=== PATIENT | male | born 1970 | race African-American/Black ===

== ENCOUNTER 2020-03-05 16:29 | Emergency (ER) | payer BC, OTHER ==
[~2020-03-05] VITALS: Ht 193 cm; Wt 109.1 kg
[2020-03-05 16:29] VITALS: BP 135/79
== END 2020-03-05 17:41 | disposition home or self-care (01) ==
LOC: M ED 16:29
DX: M25.561 Pain in right knee (principal); F17.200 Nicotine dependence, unspecified, uncomplicated

== ENCOUNTER 2020-07-08 08:10 | Emergency (ER) | payer BC ==
[~2020-07-08] VITALS: Ht 193 cm; Wt 103.1 kg
[2020-07-08 09:30] LABS: HEMATOCRIT 45.4 % (42.0-52.0); HEMOGLOBIN 15.1 g/dl (13.5-17.5); MEAN CORPUSCULAR HEMOGLOBIN 30.4 pg (27.0-33.0); MEAN CORPUSCULAR HGB CONC 33.3 g/dl (32.0-36.5); MEAN CORPUSCULAR VOLUME 91.5 fl (80.0-96.0); PLATELET COUNT, AUTOMATED 337 10^3/uL (150-450); RED BLOOD COUNT 4.96 10^6/uL (4.30-6.10); WHITE BLOOD COUNT 9.2 10^3/uL (4.0-10.0)
--- NOTE | 2020-07-08 09:33 | REP ---
INDICATION: LUE paraesthesias. COMPARISON: None. TECHNIQUE: Axial CT images with multiplanar reformations. FINDINGS: No acute bleed or acute large vessel territorial infarct. Ventricles, cisterns and sulci are within normal limits. No mass effect or midline shift. No abnormal fluid collections. Paranasal sinuses and mastoid air cells are clear IMPRESSION: No acute findings. <Electronically signed by Bill Sierra > 07/08/20 [id number]
--- NOTE | 2020-07-08 09:44 | REP ---
INDICATION: LUE paraesthesias. COMPARISON: None. TECHNIQUE: Axial CT images with multiplanar reformations. FINDINGS: No acute fracture or malalignment. There is degenerative change with anterior osteophytic spurring, degenerative vertebral flattening, and diminished disc heights. On review of axial images, the canal appears narrowed, greater at the C3-4, C4-5 and C5-6 levels. At C2-3 no significant canal or foraminal narrowing At C3-4 a disc-osteophyte complex is eccentric to the right. The canal measures approximately 8.5 mm centrally with considerable narrowing on the right at this level. At C4-5 disc osteophyte complex with moderate canal stenosis and moderate bilateral foraminal narrowing. At C5-6 disc osteophyte complex with moderate canal narrowing and moderate bilateral foraminal narrowing. At C6-7 and C7-T1 no significant canal or foraminal narrowing. Disc-osteophyte complexes narrow the neural foramen at multiple levels, C3-4 through C6-7, bilaterally. IMPRESSION: No acute findings. Degenerative changes as described. Degenerative changes contributing to radiculopathy and/or paresthesias could be more completely characterized with MRI of the cervical spine. <Electronically signed by Bill Sierra > 07/08/20 [id number]
[2020-07-08 09:49] LABS: ATYPICAL LYMPH 1 % (0-5); LYMPHOCYTES 29 % (16-44); MONOCYTES 3 % (0-5); NEUTROPHILS 67 % (28-66)
[2020-07-08 09:50] LABS: PLATELET ESTIMATE NORMAL (NORMAL)
[2020-07-08 09:59] LABS: BLOOD UREA NITROGEN 14 MG/DL (7-18); CALCIUM LEVEL 8.6 MG/DL (8.5-10.1); CARBON DIOXIDE LEVEL 29 MEQ/L (21-32); CHLORIDE LEVEL 108 MEQ/L (98-107); CK-MB VALUE MASS 1.3 NG/ML (<3.6); CPK CREATINE PHOSPHOKINASE 211 U/L (39-308); CREATININE FOR GFR 1.04 MG/DL (0.70-1.30); GLOMERULAR FILTRATION RATE > 60.0 (>56); GLUCOSE, FASTING 96 MG/DL (70-100); MAGNESIUM LEVEL 2.4 MG/DL (1.8-2.4); MB/CK RELATIVE INDEX 0.62 (< OR =4); POTASSIUM SERUM 3.7 MEQ/L (3.5-5.1); SODIUM LEVEL 142 MEQ/L (136-145); TROPONIN I < 0.02 NG/ML (< 0.10)
--- NOTE | 2020-07-08 10:08 | REP ---
INDICATION: r/o dvt LUE COMPARISON: None. None TECHNIQUE: Zaidi scale and color Doppler evaluation left upper extremity using linear high frequency transducer. FINDINGS: Ultrasound examination of the left upper extremity deep venous structures demonstrates normal flow and wave patterns without evidence for deep venous thrombosis. Incidental tubular hypoechoic structures adjacent to the basilic and brachial veins is identified and may represent the adjacent median nerve. Structure appears relatively benign and without acute pathology by ultrasound evaluation. IMPRESSION: No evidence for deep venous thrombosis. <Electronically signed by Sebastian Wei > 07/08/20 [id number]
[2020-07-08 11:49] VITALS: BP 133/80
[2020-07-08] MEDS ORDERED: PRED20TA PO (11:54)
[2020-07-08] MEDS ORDERED: IBUP80TA PO (11:54)
[2020-07-08] MEDS ORDERED: LIDO5DIS41 TOP (11:54)
--- NOTE | 2020-07-08 18:16 | ECGEPIP ---
[facility] - ED Test Date: 2020-07-08 Pat Name: SHREYA MARTINEZ Department: Room: - Gender: Male Manager Customer: VIVIANA : 1970 Requested By: RASHMI Worrell PA-C Order Number: [id number] Reading MD: Jaci Youngblood Measurements Intervals [place] Rate: 78 P: 56 NM: 124 QRS: 39 QRSD: 88 T: 46 QT: 372 QTc: 424 Interpretive Statements Normal sinus rhythm No prior Electronically Signed on 07-08-2020 18:15:47 EDT by Jaci Youngblood
--- NOTE | 2020-07-10 10:03 | ED PDOC ---
Post-Departure Follow-Up radiology report faxed to [facility] and Jaci Rizo MD Jul 10, 2020 10:03
== END 2020-07-08 12:12 | disposition home or self-care (01) ==
LOC: M ED 09:46
DX: G56.02 Carpal tunnel syndrome, left upper limb (principal); M50.30 Other cervical disc degeneration, unspecified cervical region; M50.20 Other cervical disc displacement, unspecified cervical region; R20.2 Paresthesia of skin; F17.210 Nicotine dependence, cigarettes, uncomplicated

== ENCOUNTER → 2020-07-27 | Outpatient (CLI) | payer BC ==
[~2020-07-27] MED LIST: IBUP80TA PO; LIDO5DIS41 TOP; PRED20TA PO
[2020-07-27 10:40] LABS: C REACTIVE PROTEIN QUANTITATIV 0.82 MG/DL (0.00-0.30); RHEUMATOID FACTOR QUANT < 10.0 IU/ML (<15.0)
== END ==
LOC: M LAB 09:05
PROVIDERS: ATTEND Physician Assistant
DX: M50.30 Other cervical disc degeneration, unspecified cervical region (principal)

== ENCOUNTER → 2020-08-31 | Outpatient (CLI) | payer BC ==
--- NOTE | 2020-08-31 09:54 | REPVR ---
PROCEDURE INFORMATION: Exam: MR Cervical Spine Without Contrast Exam date and time: 08/31/2020 7:57 AM Age: 50 years old Clinical indication: Radicular pain (radiculopathy); Cervical region; Additional info: Cervical disc disorder w rad R/O hnp vs stenosis TECHNIQUE: Imaging protocol: Multiplanar magnetic resonance images of the cervical spine without contrast. COMPARISON: CT Spine,cervical w/o contrast 07/08/2020 9:22 AM FINDINGS: Vertebrae: Straightening of normal cervical lordosis likely secondary to muscular spasm or positioning. Spinal cord: Normal signal. No cord compression. C2-C3: No significant disc disease. No significant spinal stenosis. C3-C4: Posterior disc osteophyte formation with bilateral uncovertebral hypertrophy and facet joint arthropathy, right greater than left resulting in moderate central spinal canal stenosis, and moderate to severe right neural foraminal narrowing. Left neural foramina is patent. C4-C5: Posterior disc osteophyte formation with bilateral uncovertebral hypertrophy and facet joint arthropathy resulting in moderate central spinal canal stenosis and moderate bilateral neural foraminal narrowing. C5-C6: Posterior disc osteophyte formation with left paracentral disc protrusion, bilateral uncovertebral hypertrophy and facet joint arthropathy resulting in moderate central spinal canal stenosis with effacement of the anterior thecal sac, moderate left lateral recess narrowing, and moderate bilateral neural foraminal narrowing. C6-C7: Posterior disc osteophyte formation, left cyst paracentral disc protrusion with annular fissure, bilateral uncovertebral hypertrophy and facet joint arthropathy resulting in moderate central spinal canal stenosis, and severe left neural foraminal narrowing. Right neural foramina is patent. C7-T1: No significant disc disease. No significant spinal stenosis. Soft tissues: Unremarkable. Vertebral arteries: Expected flow voids in the vertebral arteries. IMPRESSION: No acute fracture or traumatic subluxation. Multilevel degenerative disc disease as described in detail above. Please see above dictation for individual levels. Electronically signed by: Jacquelyn Sauceda On 08/31/2020 09:54:16 AM
== END ==
LOC: M RAD 07:12
PROVIDERS: ATTEND Physician Assistant
DX: M50.10 Cervical disc disorder with radiculopathy, unspecified cervical region (principal)

== ENCOUNTER 2023-04-17 09:53 | Day surgery (SDC) | payer BC, OTHER ==
[~2023-04-17] VITALS: Ht 193 cm; Wt 97.5 kg
[~2023-04-17 09:53] MED LIST changes: +CEFUROXIME 1MG/0.1ML INTRACAMERAL INJ As Ordered ONE; +CYCLOPENTOLATE 1% OPHTH SOLN 2ML BTL OD SCH; +LIDOCAINE 1% SDV 5ML VIAL As Ordered ONE; +OFLOXACIN 0.3 % (OCUFLOX) OPTH SOL 5ML OD SCH; +PHENYLEPHRINE 2.5% OPHTH SOL 2ML OD SCH; +PROPARACAINE 0.5% OPHTH SOL 15ML OD ONE; +TROPICAMIDE 1% OPHTH SOLN 15ML OD SCH
[2023-04-17] MEDS ORDERED: BSS IRR 500ML/OMIDRIA 4ML IRR BAG (OR ONLY) As Ordered ONE (10:46)
[2023-04-17] MEDS ORDERED: fentaNYL 100 MCG/2 ML INJECTION As Ordered ONE (11:35)
[2023-04-17] MEDS ORDERED: MIDAZOLAM INJ 2MG/2ML VIAL As Ordered ONE (11:35)
[2023-04-17 11:51] VITALS: BP 134/82; TEMP 98.2; O2SAT 97
== END 2023-04-17 12:09 | disposition home or self-care (01) ==
LOC: M SDC 09:53
PROVIDERS: ATTEND Ophthalmology
DX: H25.11 Age-related nuclear cataract, right eye (principal); F17.210 Nicotine dependence, cigarettes, uncomplicated
CPT/HCPCS: 66984; J0697; J1097; J2250; J3010; V2632

== ENCOUNTER 2023-05-22 10:35 | Day surgery (SDC) | payer OTHER ==
[~2023-05-22] VITALS: Ht 193 cm; Wt 97.5 kg
[~2023-05-22 10:35] MED LIST changes: -CEFUROXIME 1MG/0.1ML INTRACAMERAL INJ As Ordered ONE; -CYCLOPENTOLATE 1% OPHTH SOLN 2ML BTL OD SCH; -LIDOCAINE 1% SDV 5ML VIAL As Ordered ONE; +MIDAZOLAM INJ 2MG/2ML VIAL As Ordered ONE; -OFLOXACIN 0.3 % (OCUFLOX) OPTH SOL 5ML OD SCH; -PHENYLEPHRINE 2.5% OPHTH SOL 2ML OD SCH; -PROPARACAINE 0.5% OPHTH SOL 15ML OD ONE; -TROPICAMIDE 1% OPHTH SOLN 15ML OD SCH; +fentaNYL 100 MCG/2 ML INJECTION As Ordered ONE
[2023-05-22] MEDS: TROPICAMIDE 1% OPHTH SOLN 15ML OS SCH (11:12)
[2023-05-22] MEDS: OFLOXACIN 0.3 % (OCUFLOX) OPTH SOL 5ML OS SCH (11:12)
[2023-05-22] MEDS: PHENYLEPHRINE 2.5% OPHTH SOL 2ML OS SCH (11:12)
[2023-05-22] MEDS: PROPARACAINE 0.5% OPHTH SOL 15ML OS ONE (11:12)
[2023-05-22] MEDS: ATROPINE SULFATE 1% OPHTH SOLN 2ML BTL OS SCH (11:13)
[2023-05-22] MEDS: LIDOCAINE 1% SDV 5ML VIAL As Ordered ONE (12:44)
[2023-05-22] MEDS: CEFUROXIME 1MG/0.1ML INTRACAMERAL INJ As Ordered ONE (12:44)
[2023-05-22] MEDS: BSS IRR 500ML/OMIDRIA 4ML IRR BAG (OR ONLY) As Ordered ONE (12:44)
[2023-05-22 12:57] VITALS: BP 152/84; TEMP 97.8; O2SAT 99
== END 2023-05-22 13:21 | disposition home or self-care (01) ==
LOC: M SDC 10:35
PROVIDERS: ATTEND Ophthalmology
DX: H25.12 Age-related nuclear cataract, left eye (principal); F17.210 Nicotine dependence, cigarettes, uncomplicated; Z98.41 Cataract extraction status, right eye
CPT/HCPCS: 66984; J0697; J1097; J2250; J3010; V2632

== ENCOUNTER → 2023-07-19 | Outpatient (CLI) | payer OTHER ==
[~2023-07-19] MED LIST changes: -MIDAZOLAM INJ 2MG/2ML VIAL As Ordered ONE; -fentaNYL 100 MCG/2 ML INJECTION As Ordered ONE
[2023-07-19 15:53] LABS: BASO % 0.4 % (0.0-1.0); EOS # 0.1 10^3/uL (0.0-0.5); EOS % 1.3 % (0.0-3.0); HEMATOCRIT 46.5 % (42.0-52.0); HEMOGLOBIN 15.4 g/dl (13.5-17.5); LYMPH # 1.4 10^3/uL (1.5-5.0); LYMPH % 21.3 % (24.0-44.0); MEAN CORPUSCULAR HEMOGLOBIN 29.6 pg (27.0-33.0); MEAN CORPUSCULAR HGB CONC 33.1 g/dl (32.0-36.5); MEAN CORPUSCULAR VOLUME 89.4 fl (80.0-96.0); MONO # 0.5 10^3/uL (0.0-0.8); MONO % 7.7 % (2.0-8.0); NEUTROPHILS # 4.6 10^3/uL (1.5-8.5); NEUTROPHILS % 69.2 % (36.0-66.0); PLATELET COUNT, AUTOMATED 360 10^3/uL (150-450); WHITE BLOOD COUNT 6.7 10^3/uL (4.0-10.0)
[2023-07-19 15:58] LABS: ERYTHROCYTE SEDIMENTATION RATE 16 mm/hr (0-20)
[2023-07-19 16:22] LABS: ALBUMIN 3.7 G/DL (3.2-5.2); ALKALINE PHOSPHATASE 72 U/L (46-116); ALT/SGPT 22 U/L (7.0-40); AST/SGOT 16 U/L (<34); BILIRUBIN,TOTAL 0.5 MG/DL (0.3-1.2); BLOOD UREA NITROGEN 11 MG/DL (9-23); CALCIUM LEVEL 9.4 MG/DL (8.5-10.1); CARBON DIOXIDE LEVEL 30 MMOL/L (20-31); CHLORIDE LEVEL 107 MMOL/L (98-107); CREATININE FOR GFR 1.04 MG/DL (0.70-1.30); GLOMERULAR FILTRATION RATE > 60.0 (>56); GLUCOSE, FASTING 67 MG/DL (60-100); POTASSIUM SERUM 4.4 MMOL/L (3.5-5.1); SODIUM LEVEL 143 MMOL/L (136-145); TOTAL PROTEIN 7.5 G/DL (5.7-8.2)
[2023-07-19 16:24] LABS: RHEUMATOID FACTOR QUANT 5.7 IU/ML (<14)
== END ==
LOC: M RAD 12:50
PROVIDERS: ATTEND Ophthalmology
DX: H44.113 Panuveitis, bilateral (principal)

== ENCOUNTER → 2023-07-27 | Outpatient (REF) | payer OTHER | LOC: M LAB REF 17:35 | PROVIDERS: ATTEND Ophthalmology | DX: H44.113 Panuveitis, bilateral (principal) ==